=== PATIENT | male | born 1980 | race Caucasian/White ===

== ENCOUNTER 2016-11-21 05:39 | Emergency (ER) | payer MEDICAID ==
--- NOTE | 2016-11-21 05:57 | EDM.PDOC ---
ED HPI GENERAL MEDICAL PROBLEM - General Chief Complaint: General Stated Complaint: WANTS TO BE SEEN Time Seen by Provider: 11/21/16 05:55 - History of Present Illness INITIAL COMMENTS - FREE TEXT/NARRATIVE: 35-year-old male presents to the emergency room because he needs to be seen. Patient has to questions on his mind the first one is he thinks he needs a tetanus shot. 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 According to our records his last tetanus shot was April 2014. His second concern is that he wants to shower last maybe go every couple weeks. I advised him that he probably needs to shower more often. Patient is somewhat intoxicated at this time. He has no specific complaints he does not hurt anywhere and after answering his questions he would like to go home. - Related Data Allergies Allergy/AdvReac Type Severity Reaction Status Date / Time gemfibrozil Allergy Hyperactivi Verified 11/21/16 05:57 ty simvastatin Allergy Hyperactivi Verified 11/21/16 05:57 ty Home Meds: Home Meds Omeprazole 20 mg PO DAILY 11/03/16 [History] Past Medical History - Past Health History Medical/Surgical History: Denies Medical/Surgical History Other HEENT History: allergy to dust Cardiovascular History: Reports: High cholesterol Gastrointestinal History: Reports: Gastritis, GERD Psychiatric History: Reports: Other (see below) Other Psychiatric History: hallucinating, talking to people who are not in room with him. - Past Surgical History HEENT Surgical History: Reports: Other (see below) Other HEENT Surgeries/Procedures: facial reconstruction Cardiovascular Surgical History: Reports: None GI Surgical History: Reports: None Musculoskeletal Surgical History: Reports: Other (see below) Other Musculoskeletal Surgeries/Procedures:: finger surgery Dermatological Surgical History: Reports: Plastic surgical reconstruction/repair Social & Family History - Family History Family Medical History: Unobtainable - Tobacco Use Smoking Status *Q: Current Every Day Smoker Years of Tobacco use: 15 Packs/Tins Daily: 0.3 Used Tobacco, but Quit: No Second Hand Smoke Exposure: No - Caffeine Use Caffeine Use: Reports: None - Alcohol Use Days Per Week of Alcohol Use: 7 Number of Drinks Per Day: 30 Total Drinks Per Week: 210 - Recreational Drug Use Recreational Drug Use: No Recreational Drug Type: Reports: Methamphetamine Other Recreational Drug Type: states hx of marijuana, but not the past year Recreational Drug Use Frequency: Patient Refuses To Answer - Living Situation & Occupation Living situation: Reports: single Occupation: employed ED ROS GENERAL - Review of Systems Review Of Systems: See Below Constitutional: Reports: no symptoms HEENT: Reports: No symptoms Respiratory: Reports: no symptoms Cardiovascular: Reports: No symptoms GI/Abdominal: Reports: No symptoms ED EXAM, GENERAL - Physical Exam Exam: See Below Exam Limited By: Intoxication General Appearance: alert, no apparent distress Respiratory/Chest: no respiratory distress, lungs clear, normal breath sounds Cardiovascular: regular rate, rhythm, no edema, no murmur Course - Vital Signs Last Recorded V/S: Last Vital Signs Temp 36.9 C 11/21/16 05:55 Pulse 95 11/21/16 05:55 Resp 16 11/21/16 05:55 BP 148/98 H 11/21/16 05:55 Pulse Ox 95 11/21/16 05:55 Departure - Departure Time of Disposition: 06:03 Disposition: Home, Self-Care 01 Clinical Impression: Encounter for medical assessment Referrals: PCP,None [Primary Care Provider] - Forms: ED Department Discharge Additional Instructions: Return to the emergency room with any questions or problems
== END 2016-11-21 06:09 | disposition home or self-care (01) ==
LOC: JD.ED 05:39
CPT/HCPCS: 99281

== ENCOUNTER 2016-12-03 09:54 | Emergency (ER) | payer MEDICAID ==
[2016-12-03 10:11] VITALS: BP 166/99
[2016-12-03] MEDS ORDERED: Lidocaine 1% 50 ML MDV INJECT ONE (10:25)
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
== END 2016-12-03 10:45 | disposition home or self-care (01) ==
LOC: JD.ED 09:54
DX: S01.81XA Laceration without foreign body of other part of head, initial encounter (principal); E78.00 Pure hypercholesterolemia, unspecified; I10 Essential (primary) hypertension; F17.210 Nicotine dependence, cigarettes, uncomplicated; Z88.6 Allergy status to analgesic agent; Z88.8 Allergy status to other drugs, medicaments and biological substances; Z79.899 Other long term (current) drug therapy; Z98.890 Other specified postprocedural states
CPT/HCPCS: 12011; 99282-25; 99284-25

== ENCOUNTER 2016-12-24 10:59 | Emergency (ER) | payer MEDICAID, OTHER ==
[2016-12-24 11:22] VITALS: BP 168/104
--- NOTE | 2016-12-24 11:28 | EDM.PDOC ---
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 He reports drinking alcohol at the time. He is not diabetic. Denies bleeding disorder and is not on anti-coagulants. - Related Data Allergies Allergy/AdvReac Type Severity Reaction Status Date / Time gemfibrozil Allergy Hyperactivi Verified 12/24/16 11:22 ty simvastatin Allergy Hyperactivi Verified 12/24/16 11:22 ty Home Meds: Ambulatory Orders Medication Instructions Recorded Confirmed Omeprazole 20 mg PO DAILY 11/03/16 12/24/16 Cephalexin [Keflex] 500 mg PO BID #14 cap 12/24/16 Past Medical History - Past Health History Medical/Surgical History: Denies Medical/Surgical History Other HEENT History: allergy to dust Cardiovascular History: Reports: High cholesterol Gastrointestinal History: Reports: Gastritis, GERD Psychiatric History: Reports: Other (see below) Other Psychiatric History: hallucinating, talking to people who are not in room with him. - Past Surgical History HEENT Surgical History: Reports: Other (see below) Other HEENT Surgeries/Procedures: facial reconstruction Cardiovascular Surgical History: Reports: None GI Surgical History: Reports: None Musculoskeletal Surgical History: Reports: Other (see below) Other Musculoskeletal Surgeries/Procedures:: finger surgery Dermatological Surgical History: Reports: Plastic surgical reconstruction/repair Social & Family History - Family History Family Medical History: Unobtainable - Tobacco Use Smoking Status *Q: Current Every Day Smoker Years of Tobacco use: 15 Packs/Tins Daily: 0.6 Used Tobacco, but Quit: No Second Hand Smoke Exposure: No - Caffeine Use Caffeine Use: Reports: None - Alcohol Use Days Per Week of Alcohol Use: 7 Number of Drinks Per Day: 30 Total Drinks Per Week: 210 Date of Last Drink: 12/24/16 - Recreational Drug Use Recreational Drug Use: Yes Drug Use in Last 12 Months: Yes Recreational Drug Type: Reports: Methamphetamine Other Recreational Drug Type: states hx of marijuana, but not the past year Recreational Drug Use Frequency: Rarely - Living Situation & Occupation Living situation: Reports: single Occupation: employed ED ROS GENERAL - Review of Systems Review Of Systems: See Below Constitutional: Reports: no symptoms Respiratory: Reports: No Symptoms Cardiovascular: Reports: No symptoms Skin: Reports: other (laceration to left index finger) ED EXAM, SKIN/RASH Exam: See Below Exam Limited By: No limitations General Appearance: alert, WD/WN, no apparent distress Respiratory/Chest: no respiratory distress, lungs clear Cardiovascular: regular rate, rhythm, no murmur Peripheral Pulses: 2+: radial (L) Extremities: normal capillary refill, other (Laceration to left index finger, this is very jagged/irregular. 4.5cm total length. ) Neurological: alert, oriented, no motor/sensory deficits Skin: Warm, Dry ED SKIN PROCEDURES - Laceration/Wound Repair Left Finger Lac/wound length in cm: 4.5 Appearance: muscle Distal NVT: neuro & vascular intact, no tendon injury Anesthetic type: local Local anesthesia - Lidocaine (Xylocaine): 1% plain Local anesthetic volume: other (7cc) Skin prep: chlorhexidine (hibiciens), saline Saline irrigation (cc's): 100 Exploration/Debridement/Repair: wound explored, in a bloodless field, no foreign material found Closed with: sutures Suture size: 4-0 # of sutures: 11 Suture type: nylon Course - Vital Signs Last Recorded V/S: Last Vital Signs Temp 98.3 F 12/24/16 11:15 Pulse 111 H 12/24/16 11:15 Resp 16 12/24/16 11:15 BP 168/104 H 12/24/16 11:15 Pulse Ox 97 12/24/16 11:15 - Orders/Labs/Meds Meds: Medications Discontinued Medications Generic Name Dose Route Start Last Admin Trade Name Gino PRN Reason Stop Dose Admin Lidocaine HCl 20 ml 12/24/16 11:35 12/24/16 12:47 Xylocaine 1% INJECT 12/24/16 11:36 Not Given ONETIME ONE Lidocaine HCl Confirm 12/24/16 11:39 12/24/16 11:45 Xylocaine 1% Administered 12/24/16 11:40 50 ml Dose Administration 50 ml .ROUTE .STK-MED ONE Lidocaine HCl 50 ml 12/24/16 11:40 12/24/16 12:47 Xylocaine 1% INJECT 12/24/16 11:41 Not Given ONETIME ONE - Re-Assessments/Exams Free Text/Narrative Re-Assessment/Exam: Jagged laceration to left index finger repaired with 11 simple interrupted sutures. He had full ROM of left index finger, NV intact before and after repair. Patient tolerated procedure well, but was quite fidgety during procedure. Wound care instructions discussed as well as s/sx of infection and patient verbalized understanding. Tdap 04/29/2014. Laceration occurred in contaminated environment, will treat with Keflex for a few days as well. He is to follow-up in clinic in 7-10 days for suture removal. 12/24/16 17:04 Departure - Departure Time of Disposition: 12:43 Disposition: Home, Self-Care 01 Clinical Impression: Laceration of finger of left hand Qualifiers: Encounter type: initial encounter Qualified Code(s): S61.219A - Laceration without foreign body of unspecified finger without damage to nail, initial encounter Prescriptions: Cephalexin [Keflex] 500 mg PO BID #14 cap Instructions: Laceration Care, Adult Referrals: Kevin Cody MD [Primary Care Provider] - Forms: ED Department Discharge Additional Instructions: Keep wound clean and dry, cover when working outdoors. You may shower normally starting tomorrow, not tub or pools until completely healed. Monitor for increase redness, warmth or swelling. Follow-up in clinic in 7-10 days for suture removal.
[2016-12-24] MEDS ORDERED: Lidocaine 1% 20 ML MDV INJECT ONE ×2 (11:35→11:40)
[2016-12-24] MEDS ORDERED: Lidocaine 1% 50 ML MDV ONE (11:39)
== END 2016-12-24 12:55 | disposition home or self-care (01) ==
LOC: JD.ED 10:59
DX: S61.219A Laceration without foreign body of unspecified finger without damage to nail, initial encounter (principal); E78.00 Pure hypercholesterolemia, unspecified; K21.9 Gastro-esophageal reflux disease without esophagitis; F17.210 Nicotine dependence, cigarettes, uncomplicated; Z88.8 Allergy status to other drugs, medicaments and biological substances; Z79.899 Other long term (current) drug therapy; W01.0XXA Fall on same level from slipping, tripping and stumbling without subsequent striking against object, initial encounter
CPT/HCPCS: 12002; 99283; 99283-25

== ENCOUNTER 2017-01-05 07:24 | Emergency (ER) | payer MEDICAID ==
[2017-01-05 07:44] VITALS: BP 136/98
--- NOTE | 2017-01-05 08:13 | EDM.PDOC ---
ED HPI Trauma - General Chief Complaint: Lower Extremity Injury/Pain Stated Complaint: LT POINTER FINGER INFECTED Time Seen by Provider: 01/05/17 07:46 Source: Reports: Patient, RN notes reviewed - History of Present Illness INITIAL COMMENTS - FREE TEXT/NARRATIVE: 36-year-old male comes in with infected left finger laceration. He states he cut it on some tin about 13 days ago. He did have stitches. They were removed just a day or 2 ago. the wound has opened up a bit at and there has been some drainage. There is localized swelling. He states he is on an antibiotic but has no idea what that is. [facility] Allergies/ADRs: Allergies gemfibrozil Allergy (Verified 01/05/17 07:44) Hyperactivity simvastatin Allergy (Verified 01/05/17 07:44) Hyperactivity Home Medications: Ambulatory Orders Omeprazole 20 mg PO DAILY 11/03/16 [Confirmed 12/24/16] Cephalexin [Keflex] 500 mg PO BID #14 cap 12/24/16 Cephalexin 500 mg PO Q6HR #30 capsule 01/05/17 Past Medical History - Past Health History Medical/Surgical History: Denies Medical/Surgical History Other HEENT History: allergy to dust Cardiovascular History: Reports: High cholesterol Gastrointestinal History: Reports: Gastritis, GERD Psychiatric History: Reports: Other (see below) Other Psychiatric History: hallucinating, talking to people who are not in room with him. - Past Surgical History HEENT Surgical History: Reports: Other (see below) Other HEENT Surgeries/Procedures: facial reconstruction Cardiovascular Surgical History: Reports: None GI Surgical History: Reports: None Musculoskeletal Surgical History: Reports: Other (see below) Other Musculoskeletal Surgeries/Procedures:: finger surgery Dermatological Surgical History: Reports: Plastic surgical reconstruction/repair Social & Family History - Family History Family Medical History: Unobtainable - Tobacco Use Smoking Status *Q: Current Every Day Smoker Years of Tobacco use: 15 Packs/Tins Daily: 1 Used Tobacco, but Quit: No Second Hand Smoke Exposure: No - Caffeine Use Caffeine Use: Reports: Coffee, Soda - Alcohol Use Days Per Week of Alcohol Use: 7 Number of Drinks Per Day: 15 Total Drinks Per Week: 105 - Recreational Drug Use Recreational Drug Use: Yes Drug Use in Last 12 Months: Yes Recreational Drug Type: Reports: Marijuana/Hashish, Methamphetamine Other Recreational Drug Type: states hx of marijuana, but not the past year Recreational Drug Use Frequency: Rarely - Living Situation & Occupation Living situation: Reports: single Occupation: employed Review of Systems - Review of Systems Review Of Systems: See Below Constitutional: Denies: fever Eyes: Reports: no symptoms Mouth/Throat: Reports: no symptoms Respiratory: Reports: No Symptoms Cardiovascular: Reports: no symptoms GI/Abdominal: Reports: No symptoms Musculoskeletal: Reports: other (Infected left index finger laceration) Neurological: Reports: No Symptoms Trauma Exam - Physical Exam Exam: See Below General Appearance: Reports: alert, no apparent distress Head: Reports: atraumatic Respiratory Exam: Reports: no respiratory distress Extremities: Reports: pain with movement (Mild), tenderness (Mild), other (2 cm flap laceration has opened up mildly. There is slight drainage present, mild localized swelling.). Denies: bony-point tenderness Neurologic: Denies: motor weakness, sensory deficit Course - Vital Signs Last Recorded V/S: Last Vital Signs Temp 98.4 F 01/05/17 07:39 Pulse 99 01/05/17 07:39 Resp 16 01/05/17 07:39 BP 136/98 H 01/05/17 07:39 Pulse Ox 97 01/05/17 07:39 - Re-Assessments/Exams Free Text/Narrative Re-Assessment/Exam: 01/05/17 08:19. we have soaked the finger in a Hibiclens solution. He is currently on an antibiotic but does not know what that is. [facility] They do not open until 9 AM this morning. I am going to let him go at this time. We'll call the medicine shop at 9:00, find out what he is taking and then I will add an additional antibiotic to that. Discharge instructions as documented 01/05/17 09:09. Patient was started on Bactrim antibiotic 2 days ago. I sent electronic prescription to [facility] for cephalexin 500 mg 4 times a day for one week Departure - Departure Time of Disposition: 08:10 Disposition: Home, Self-Care 01 Condition: fair Clinical Impression: Wound infection Prescriptions: Cephalexin 500 mg PO Q6HR #30 capsule Instructions: Wound Infection, [id number] Referrals: PCP,None [Primary Care Provider] - Forms: ED Department Discharge Additional Instructions: soak in warm soapy water 2 to 3 times daily as best you can. We will call [facility] at [facility]:00 when they open, fine out what antibiotic you are taking and than send a prescription for an addition antibiotic. Take the previous prescribed antibiotic until gone and they one prescribed today until gone as well. Follow up clinic with your regular provider in about 1 week if not much better. Keep protected when at work.
== END 2017-01-05 08:26 | disposition home or self-care (01) ==
LOC: JD.ED 07:24
DX: T81.4XXA Infection following a procedure, initial encounter (principal); E78.00 Pure hypercholesterolemia, unspecified; K21.9 Gastro-esophageal reflux disease without esophagitis; F17.210 Nicotine dependence, cigarettes, uncomplicated; Z88.8 Allergy status to other drugs, medicaments and biological substances
CPT/HCPCS: 99283; 99284

== ENCOUNTER 2017-01-13 23:55 | Emergency (ER) | payer MEDICAID ==
[2017-01-14 00:10] VITALS: BP 157/101
--- NOTE | 2017-01-14 00:45 | EDM.PDOC ---
ED HPI Behavioral Health - General Chief Complaint: Drug or Alcohol Abuse Stated Complaint: ALCOHOL/MEDICAL CLEARANCE Time Seen by Provider: 01/14/17 00:22 Source of Information: Reports: Patient, RN notes reviewed - History of Present Illness INITIAL COMMENTS - FREE TEXT/NARRATIVE: 36 year old male brought in for medical clearance prior to going to [facility] for detox. Police officers state they have been called out 3 times already this evening for him. He has known hx of alcohol abuse and dependency. He has some blood on his face but no visible swelling or deformity. He can not tell me what happened. It is suspected he fell injuring his face. - Related Data Allergies Allergy/AdvReac Type Severity Reaction Status Date / Time gemfibrozil Allergy Hyperactivi Verified 01/14/17 00:15 ty simvastatin Allergy Hyperactivi Verified 01/14/17 00:15 ty Home Medications: Home Meds Omeprazole 20 mg PO DAILY 11/03/16 [History] Cephalexin [Keflex] 500 mg PO BID #14 cap 12/24/16 [Rx] Cephalexin 500 mg PO Q6HR #30 capsule 01/05/17 [Rx] Past Medical History - Past Health History Medical/Surgical History: Denies Medical/Surgical History Other HEENT History: allergy to dust Cardiovascular History: Reports: High cholesterol Gastrointestinal History: Reports: Gastritis, GERD Psychiatric History: Reports: Other (see below) Other Psychiatric History: hallucinating, talking to people who are not in room with him. - Past Surgical History HEENT Surgical History: Reports: Other (see below) Other HEENT Surgeries/Procedures: facial reconstruction Cardiovascular Surgical History: Reports: None GI Surgical History: Reports: None Musculoskeletal Surgical History: Reports: Other (see below) Other Musculoskeletal Surgeries/Procedures:: finger surgery Dermatological Surgical History: Reports: Plastic surgical reconstruction/repair Social & Family History - Family History Family Medical History: Unobtainable - Tobacco Use Smoking Status *Q: Never Smoker Years of Tobacco use: 15 Packs/Tins Daily: 1 Used Tobacco, but Quit: No Second Hand Smoke Exposure: No - Caffeine Use Caffeine Use: Reports: None - Alcohol Use Days Per Week of Alcohol Use: 7 Number of Drinks Per Day: 15 Total Drinks Per Week: 105 - Recreational Drug Use Recreational Drug Use: No Drug Use in Last 12 Months: Yes Recreational Drug Type: Reports: Marijuana/Hashish, Methamphetamine Other Recreational Drug Type: states hx of marijuana, but not the past year Recreational Drug Use Frequency: Rarely - Living Situation & Occupation Living situation: Reports: single Occupation: employed ED ROS GENERAL - Review of Systems Review Of Systems: See Below HEENT: Denies: Ear pain, Nosebleed, Nose pain Respiratory: Denies: Shortness of Breath Cardiovascular: Denies: Chest pain GI/Abdominal: Denies: Abdominal pain Musculoskeletal: Denies: neck pain Neurological: Reports: Dizziness ED EXAM, BEHAVIORAL HEALTH - Physical Exam Exam: See Below Exam Limited By: Intoxication General Appearance: alert, other (pt handcuffed to bed rails at time of my exam , kept trying to leave) Eye Exam: bilateral eye: PERRL Nose: normal inspection. No: nasal swelling, nasal drainage Throat/Mouth: Normal inspection, Normal oropharynx Head: No: facial swelling, facial tenderness Neck: supple Respiratory/Chest: no respiratory distress, lungs clear Cardiovascular: tachycardia Extremities: other (no bony tenderness, healing lac L hand) Neurological: alert (very intoxicated, answers simple questions, knows where he is at) COURSE, BEHAVIORAL HEALTH COMP - Course Vital Signs: Last Vital Signs Temp 97.7 F 01/14/17 00:07 Pulse 129 H 01/14/17 00:07 Resp 20 01/14/17 00:07 BP 157/101 H 01/14/17 00:07 Pulse Ox 97 01/14/17 00:07 Re-Assessment/Re-Exam: Vitals are OK, he was able to walk, discharge instr. as documented. Departure - Departure Time of Disposition: 00:43 Disposition: DC/Tfer to Other 70 Condition: fair Clinical Impression: Alcohol intoxication Qualifiers: Complication of substance-induced condition: uncomplicated Qualified Code(s): F10.120 - Alcohol abuse with intoxication, uncomplicated Instructions: Alcohol Intoxication, [id number] Referrals: PCP,None [Primary Care Provider] - Additional Instructions: Patient has severe alcohol intoxication, known history of severe alcohol dependency and abuse. Medical screening exam has been done. No other acute emergency medical condition is identified at this time.
== END 2017-01-14 00:48 | disposition other institution (70) ==
LOC: JD.ED 23:55
DX: F10.120 Alcohol abuse with intoxication, uncomplicated (principal); E78.00 Pure hypercholesterolemia, unspecified; K21.9 Gastro-esophageal reflux disease without esophagitis; Z88.8 Allergy status to other drugs, medicaments and biological substances; Z79.899 Other long term (current) drug therapy
CPT/HCPCS: 99282; 99283

== ENCOUNTER 2017-03-10 19:27 | Emergency (ER) | payer MEDICAID ==
[2017-03-10 20:03] VITALS: BP 158/107
== END 2017-03-10 20:15 ==
LOC: JD.ED 19:27
DX: Z53.21 Procedure and treatment not carried out due to patient leaving prior to being seen by health care provider (principal)
CPT/HCPCS: 99284-25

== ENCOUNTER 2017-03-10 23:12 | Emergency (ER) | payer MEDICAID ==
[2017-03-10 23:36] VITALS: BP 154/98
--- NOTE | 2017-03-11 00:27 | EDM.PDOC ---
ED HPI GENERAL MEDICAL PROBLEM - General Chief Complaint: ENT Problem Stated Complaint: BLOODY NOSE Time Seen by Provider: 03/11/17 00:24 - History of Present Illness INITIAL COMMENTS - FREE TEXT/NARRATIVE: 41-year-old male presents to emergency room with a bloody nose. Patient states he has a bloody nose he does not appear to have any active bleeding he is heavily intoxicated at this point he states he's been drinking heavily today. He requests florentin-steroids for control of his bloody nose. - Related Data Allergies Allergy/AdvReac Type Severity Reaction Status Date / Time gemfibrozil Allergy Hyperactivi Verified 03/10/17 23:36 ty simvastatin Allergy Hyperactivi Verified 03/10/17 23:36 ty Home Meds: Home Meds Omeprazole 20 mg PO DAILY 11/03/16 [History] Past Medical History - Past Health History Medical/Surgical History: Denies Medical/Surgical History HEENT History: Reports: Epistaxis Other HEENT History: allergy to dust Cardiovascular History: Reports: High Cholesterol Respiratory History: Reports: Other (See Below) Other Respiratory History: "punctured lung" Gastrointestinal History: Reports: Gastritis, GERD Genitourinary History: Reports: Other (See Below) Other Genitourinary History: "punctured kidney" Psychiatric History: Reports: Other (See Below) Other Psychiatric History: hallucinating, talking to people who are not in room with him. - Past Surgical History HEENT Surgical History: Reports: Other (See Below) GI Surgical History: Reports: None Musculoskeletal Surgical History: Reports: Other (See Below) Other Musculoskeletal Surgeries/Procedures:: broken ribs, broken pelvis Dermatological Surgical History: Reports: Plastic Surgical Reconstruction/Repair Social & Family History - Family History Family Medical History: Unobtainable - Tobacco Use Smoking Status *Q: Unknown Ever Smoked Years of Tobacco use: 15 Packs/Tins Daily: 1 Used Tobacco, but Quit: No Second Hand Smoke Exposure: No - Caffeine Use Caffeine Use: Reports: Soda - Alcohol Use Days Per Week of Alcohol Use: 7 Number of Drinks Per Day: 15 Total Drinks Per Week: 105 - Recreational Drug Use Recreational Drug Use: No Drug Use in Last 12 Months: Yes Recreational Drug Type: Reports: Marijuana/Hashish, Methamphetamine Other Recreational Drug Type: states hx of marijuana, but not the past year Recreational Drug Use Frequency: Rarely - Living Situation & Occupation Living situation: Reports: Single Occupation: Employed ED ROS GENERAL - Review of Systems Review Of Systems: See Below Constitutional: Reports: No Symptoms Respiratory: Reports: No Symptoms Cardiovascular: Reports: No Symptoms GI/Abdominal: Reports: No Symptoms ED EXAM, GENERAL - Physical Exam Exam: See Below Exam Limited By: Intoxication General Appearance: Alert, No Apparent Distress Ears: Normal External Exam, Normal Canal, Normal TMs Nose: Normal Inspection, Normal Mucosa, No Blood Throat/Mouth: Normal Inspection, Normal Oropharynx, No Airway Compromise Head: Atraumatic, Normocephalic Neck: Normal Inspection, Supple, Non-Tender, Full Range of Motion Respiratory/Chest: No Respiratory Distress, Lungs Clear, Normal Breath Sounds Cardiovascular: Regular Rate, Rhythm, No Edema, No Murmur Course - Vital Signs Last Recorded V/S: Last Vital Signs Temp 37.2 C 03/10/17 23:34 Pulse 109 H 03/10/17 23:34 Resp 16 03/10/17 23:34 BP 154/98 H 03/10/17 23:34 Pulse Ox 95 03/10/17 23:34 Departure - Departure Time of Disposition: 00:26 Disposition: Home, Self-Care 01 Clinical Impression: Hx of epistaxis - Discharge Information Forms: ED Department Discharge Additional Instructions: Return to the emergency room with any questions or problems or worsening symptoms. At this time there is no evidence of the bloody nose. There is no dried blood in urinalysis there is no blood coming down the back your throat. Steroids are not indicated for bloody noses he will not be started on steroids with no active bleeding there is nothing I can do for your bloody nose at this point. Follow-up in the clinic this next week if needed
== END 2017-03-11 00:30 | disposition left against medical advice (07) ==
LOC: JD.ED 23:12
DX: R04.0 Epistaxis (principal); K21.9 Gastro-esophageal reflux disease without esophagitis; E78.00 Pure hypercholesterolemia, unspecified; Z88.8 Allergy status to other drugs, medicaments and biological substances; Z79.899 Other long term (current) drug therapy; Z98.890 Other specified postprocedural states
CPT/HCPCS: 99282; 99283

== ENCOUNTER 2017-05-19 16:18 | Emergency (ER) | payer MEDICAID ==
[2017-05-19 16:35] VITALS: BP 128/94
--- NOTE | 2017-05-19 17:15 | EDM.PDOC ---
ED HPI GENERAL MEDICAL PROBLEM - General Chief Complaint: Lower Extremity Injury/Pain Stated Complaint: SENT BY [facility]INT[facility] Time Seen by Provider: 05/19/17 16:42 Source of Information: Reports: Patient History Limitations: Reports: Intoxication - History of Present Illness INITIAL COMMENTS - FREE TEXT/NARRATIVE: Patient is a 36-year-old male who is intoxicated presents ED complaining of left ankle pain. Patient states he was walking slipped injuring the affected ankle. He has increasing pain with flexion/extension, palpation, and weightbearing. In addition he has abrasion to the right forehead sustained from the fall. States he was not knocked out. Denies any head, neck, back pain. He has no pain to the remainder extremities. No numbness or tingling. Again he is intoxicated. Left Lower Leg Pain Score (Numeric/FACES): 6 - Related Data Allergies Allergy/AdvReac Type Severity Reaction Status Date / Time gemfibrozil Allergy Hyperactivi Verified 05/19/17 16:30 ty simvastatin Allergy Hyperactivi Verified 05/19/17 16:30 ty Home Meds: Home Meds Omeprazole 20 mg PO DAILY 11/03/16 [History] Past Medical History - Past Health History Medical/Surgical History: Denies Medical/Surgical History HEENT History: Reports: Epistaxis Other HEENT History: allergy to dust Cardiovascular History: Reports: High Cholesterol Respiratory History: Reports: Other (See Below) Other Respiratory History: "punctured lung" Gastrointestinal History: Reports: Gastritis, GERD Genitourinary History: Reports: Other (See Below) Other Genitourinary History: "punctured kidney" Psychiatric History: Reports: Schizophrenia Other Psychiatric History: hallucinating, talking to people who are not in room with him. - Past Surgical History GI Surgical History: Reports: None Musculoskeletal Surgical History: Reports: Other (See Below) Other Musculoskeletal Surgeries/Procedures:: broken ribs, broken pelvis Dermatological Surgical History: Reports: Plastic Surgical Reconstruction/Repair Social & Family History - Family History Family Medical History: Unobtainable - Tobacco Use Smoking Status *Q: Current Every Day Smoker Years of Tobacco use: 14 Packs/Tins Daily: 1 Used Tobacco, but Quit: No Second Hand Smoke Exposure: No - Caffeine Use Caffeine Use: Reports: Energy Drinks, Soda - Alcohol Use Days Per Week of Alcohol Use: 7 Number of Drinks Per Day: 30 Total Drinks Per Week: 210 - Recreational Drug Use Recreational Drug Use: No Drug Use in Last 12 Months: Yes Recreational Drug Type: Reports: Marijuana/Hashish, Methamphetamine Other Recreational Drug Type: states hx of marijuana, but not the past year Recreational Drug Use Frequency: Rarely - Living Situation & Occupation Living situation: Reports: Single Occupation: Employed Review of Systems - Review of Systems Review Of Systems: ROS reveals no pertinent complaints other than HPI. ED EXAM, GENERAL - Physical Exam Exam: See Below Exam Limited By: Intoxication General Appearance: Alert, WD/WN, No Apparent Distress Eye Exam: Bilateral Eye: EOMI, Nystagmus (Horizontal present), PERRL Ears: Hearing Grossly Normal Nose: Normal Inspection, Normal Mucosa, No Blood Throat/Mouth: Normal Inspection, Normal Oropharynx, Normal Voice, No Airway Compromise Head: Other (Small superficial abrasion to the right forehead. No bony abnormalities, ecchymosis, swelling present.) Neck: Normal Inspection, Supple, Non-Tender, Full Range of Motion. No: Tender Lateral, Tender Midline Respiratory/Chest: No Respiratory Distress, Lungs Clear, Normal Breath Sounds, No Accessory Muscle Use, Chest Non-Tender Cardiovascular: Normal Peripheral Pulses, Regular Rate, Rhythm Peripheral Pulses: 2+: Radial (L) Extremities: Other (Minimal swelling to the left ankle with no ecchymosis or bony antibiotics. Pain with palpation and flexion/extension of the ankle.) Neurological: Alert, Oriented, CN II-XII Intact, No Motor/Sensory Deficits Psychiatric: Normal Affect, Normal Mood Skin Exam: Warm, Dry, Intact, Normal Color Course - Vital Signs Last Recorded V/S: Last Vital Signs Temp 98.1 F 05/19/17 16:30 Pulse 88 05/19/17 16:30 Resp 16 05/19/17 16:30 BP 128/94 H 05/19/17 16:30 Pulse Ox 100 05/19/17 16:30 - Orders/Labs/Meds Orders: Active Orders 24 hr Category Date Time Status Ankle Min 3V Lt [CR] Stat Exams 05/19/17 17:12 Taken - Re-Assessments/Exams Free Text/Narrative Re-Assessment/Exam: Order x-ray of the left ankle and head CT without contrast. Head CT impression: No acute intracranial abnormalities. X-ray of the left ankle revealed no acute bony abnormalities. Old avulsion fracture to the tibia. Reviewed with Dr. Hinojosa. Shared results with patient. Offered walking boot and crutches. Patient refuses. Will discharge patient home with instructions as documented. Departure - Departure Time of Disposition: 18:15 Disposition: Home, Self-Care 01 Condition: Good Clinical Impression: Alcohol abuse High ankle sprain of left lower extremity Qualifiers: Encounter type: initial encounter Qualified Code(s): S93.432A - Sprain of tibiofibular ligament of left ankle, initial encounter Contusion of ankle, left Qualifiers: Encounter type: initial encounter Qualified Code(s): S90.02XA - Contusion of left ankle, initial encounter Abrasion head Qualifiers: Encounter type: initial encounter Qualified Code(s): S00.91XA - Abrasion of unspecified part of head, initial encounter Alcohol intoxication Qualifiers: Complication of substance-induced condition: uncomplicated Qualified Code(s): F10.120 - Alcohol abuse with intoxication, uncomplicated - Discharge Information Instructions: Ankle Sprain, [id number] Referrals: Kevin Cody MD [Primary Care Provider] - Forms: ED Department Discharge Additional Instructions: You are to be nonweightbearing. Elevate when able to reduce swelling and pain. Take ibuprofen and Tylenol in alternating fashion for discomfort. Place ice to affected area 6 times daily, 20 months in duration, do not place ice directly on the skin. Follow-up with her PCP in the next week for reevaluation if symptoms persist. Return to ED for any new or worsening symptoms. No driving today since you are intoxicated. - My Orders Last 24 Hours: My Active Orders 05/19/17 17:12 Ankle Min 3V Lt [CR] Stat - Assessment/Plan Last 24 Hours: My Active Orders 05/19/17 17:12 Ankle Min 3V Lt [CR] Stat
--- NOTE | 2017-05-19 18:00 | CT ---
Head CT Technique: Multiple axial sections through the brain were obtained. Intravenous contrast was not utilized. Comparison: Previous head CT exam of 10/27/16. Findings: Ventricles along with basal cisterns and sulci over the convexities are stable from prior head CT exam. No abnormal parenchymal densities are appreciated. No evidence of intracranial hemorrhage. No midline shift or mass effect is seen. Bone window settings were reviewed which shows no discrete calvarial abnormality. Visualized sinuses are clear. Impression: 1. No acute intracranial abnormality is identified. No significant change is identified from prior head CT exam. Diagnostic code #1
--- NOTE | 2017-05-21 08:56 | CR ---
Left ankle: Four views of the left ankle were obtained. Minimal fracture is identified off the distal tip of the medial malleolus. Age of this is indeterminate and please correlate with patient's symptoms. Ankle mortise is symmetric. Minimal calcifications which appear old identified off the dorsal and anterior talus which are compatible with old avulsion injury. No additional bony abnormality is appreciated. Impression: 1. Small fracture off the medial malleolus, age indeterminate. Please correlate. 2. Old avulsion injury off the anterior and dorsal talus. Diagnostic code #3
== END 2017-05-19 18:46 | disposition home or self-care (01) ==
LOC: JD.ED 16:18
DX: S93.432A Sprain of tibiofibular ligament of left ankle, initial encounter (principal); S90.02XA Contusion of left ankle, initial encounter; S00.91XA Abrasion of unspecified part of head, initial encounter; F10.120 Alcohol abuse with intoxication, uncomplicated; E78.00 Pure hypercholesterolemia, unspecified; K21.9 Gastro-esophageal reflux disease without esophagitis; Z98.890 Other specified postprocedural states; F17.210 Nicotine dependence, cigarettes, uncomplicated; Z79.899 Other long term (current) drug therapy; Z88.8 Allergy status to other drugs, medicaments and biological substances; W18.40XA Slipping, tripping and stumbling without falling, unspecified, initial encounter
CPT/HCPCS: 70450; 70450-26; 73610-26-LT; 73610-LT; 99284; 99284-25

== ENCOUNTER 2017-05-20 18:54 | Emergency (ER) | payer MEDICAID ==
[2017-05-20 19:03] VITALS: BP 143/89
--- NOTE | 2017-05-20 20:01 | EDM.PDOC ---
ED HPI GENERAL MEDICAL PROBLEM - General Chief Complaint: Lower Extremity Injury/Pain Stated Complaint: INJURED LT LEG Time Seen by Provider: 05/20/17 19:28 Source of Information: Reports: Patient History Limitations: Reports: No Limitations - History of Present Illness INITIAL COMMENTS - FREE TEXT/NARRATIVE: This is a 36-year-old male. He comes tonight because he twisted his left ankle. He thinks it's broken. He additionally indicates that he needs something for pain because he needs to quit drinking alcohol. He apologized to me since he has not taken a shower or bath in 3 weeks. He denies any other acute symptoms at this time he is just here for his left ankle. - Related Data Allergies Allergy/AdvReac Type Severity Reaction Status Date / Time gemfibrozil Allergy Hyperactivi Verified 05/19/17 16:30 ty simvastatin Allergy Hyperactivi Verified 05/19/17 16:30 ty Home Meds: Home Meds Omeprazole 20 mg PO DAILY 11/03/16 [History] Fexofenadine [Kaylie] 60 mg PO DAILY 05/20/17 [History] Past Medical History - Past Health History Medical/Surgical History: Denies Medical/Surgical History HEENT History: Reports: Epistaxis Other HEENT History: allergy to dust Cardiovascular History: Reports: High Cholesterol Respiratory History: Reports: Other (See Below) Other Respiratory History: "punctured lung" Gastrointestinal History: Reports: Gastritis, GERD Genitourinary History: Reports: Other (See Below) Other Genitourinary History: "punctured kidney" Psychiatric History: Reports: Schizophrenia Other Psychiatric History: hallucinating, talking to people who are not in room with him. - Infectious Disease History Infectious Disease History: Reports: None - Past Surgical History GI Surgical History: Reports: None Musculoskeletal Surgical History: Reports: Other (See Below) Other Musculoskeletal Surgeries/Procedures:: broken ribs, broken pelvis Dermatological Surgical History: Reports: Plastic Surgical Reconstruction/Repair Social & Family History - Family History Family Medical History: Noncontributory - Tobacco Use Smoking Status *Q: Current Every Day Smoker Years of Tobacco use: 14 Packs/Tins Daily: 1 Used Tobacco, but Quit: No Second Hand Smoke Exposure: No - Caffeine Use Caffeine Use: Reports: Energy Drinks, Soda - Alcohol Use Days Per Week of Alcohol Use: 7 Number of Drinks Per Day: 50 Total Drinks Per Week: 350 Date of Last Drink: 05/20/17 Time of Last Drink: 17:30 - Recreational Drug Use Recreational Drug Use: No Drug Use in Last 12 Months: Yes Recreational Drug Type: Reports: Methamphetamine Other Recreational Drug Type: states hx of marijuana, but not the past year Recreational Drug Use Frequency: Rarely - Living Situation & Occupation Living situation: Reports: Single Occupation: Employed Review of Systems - Review of Systems Review Of Systems: See Below Constitutional: Denies: Chills, Fever Eyes: Reports: No Symptoms Ears: Reports: No Symptoms Nose: Reports: No Symptoms Mouth/Throat: Reports: No Symptoms Respiratory: Reports: No Symptoms Cardiovascular: Reports: No Symptoms GI/Abdominal: Reports: No Symptoms Genitourinary: Reports: Other (Denies any symptoms) Musculoskeletal: Reports: Other (Aspirin history of present illness, he also states that his knees and his hips are all torn up but he doesn't want me to look at them) Skin: Reports: No Symptoms Neurological: Reports: No Symptoms Psychiatric: Reports: No Symptoms ED EXAM, GENERAL - Physical Exam Exam: See Below Exam Limited By: No Limitations General Appearance: Alert, WD/WN, No Apparent Distress, Other (Patient is somewhat unkempt, he appears to be chemically impaired though when he is asked on he states his he does have alcohol at times and is drinking too much) Eye Exam: Bilateral Eye: Normal Inspection Ears: Normal External Exam Nose: Normal Inspection Throat/Mouth: Normal Lips, Normal Voice, No Airway Compromise Head: Normocephalic Neck: Supple Respiratory/Chest: No Respiratory Distress Back Exam: Full Range of Motion Extremities: Other (Left ankle shows at most some minimal swelling on the lateral malleolus and no significant tenderness on palpation, he complains of a distal fibular tenderness but there is no swelling there, his left foot is nontender on palpation, he would not allow me to examine his knees or his hips. He complains are all torn up) Neurological: Alert, Oriented Psychiatric: Flat Affect Skin Exam: Warm, Dry Course - Vital Signs Last Recorded V/S: Last Vital Signs Temp 98.8 F 05/20/17 19:00 Pulse 114 H 05/20/17 19:00 Resp 18 05/20/17 19:00 BP 143/89 H 05/20/17 19:00 Pulse Ox 97 05/20/17 19:00 - Orders/Labs/Meds Orders: Active Orders 24 hr Category Date Time Status Ankle Min 3V Lt [CR] Stat Exams 05/20/17 19:45 Taken - Radiology Interpretation Free Text/Narrative:: The x-ray of the left ankle suggest he might have just a very small avulsion fracture on the medial side of the ankle. When I go talk to the patient however he does not point to that area as the area of pain. So this could be an old avulsion fracture rather than a new one. - Re-Assessments/Exams Free Text/Narrative Re-Assessment/Exam: 05/20/17 20:31 I spoke to the patient regarding the x-rays results and he consistently does not point to the area of the avulsion fracture as the area of pain. However I stated and dispensed a 4 inch Jonel wrap to his left ankle for comfort. The patient of course asked again for narcotics and I explained to him that a sprain does not require narcotics and that he needs to ice it down and take over -the-counter Aleve or ibuprofen for the soreness. The patient made the comment that he would just have to keep drinking then and I told him that that would be his choice. Departure - Departure Time of Disposition: 20:32 Disposition: Home, Self-Care 01 Condition: Good Clinical Impression: Left ankle sprain Qualifiers: Encounter type: initial encounter Involved ligament of ankle: other ligament Qualified Code(s): S93.492A - Sprain of other ligament of left ankle, initial encounter Avulsion fracture of left ankle Qualifiers: Encounter type: initial encounter Fracture type: closed Qualified Code(s): S82.892A - Other fracture of left lower leg, initial encounter for closed fracture - Discharge Information Referrals: Kevin Cody MD [Primary Care Provider] - Forms: ED Department Discharge Additional Instructions: Wear the Jonel wrap when you're up to help support the left ankle, follow-up with her family doctor this week for recheck, when you get home ice it 15 minutes out of every hour to help with the pain, get some Aleve or ibuprofen and take it for the soreness and the pain, recheck the ER if needed - My Orders Last 24 Hours: My Active Orders 05/20/17 19:45 Ankle Min 3V Lt [CR] Stat - Assessment/Plan Last 24 Hours: My Active Orders 05/20/17 19:45 Ankle Min 3V Lt [CR] Stat
--- NOTE | 2017-05-21 18:24 | CR ---
Left ankle: Four views of the left ankle were obtained. Comparison: No previous ankle study. Soft tissue swelling is identified. Small fracture is identified off the tip of the medial malleolus. No additional fracture or other abnormality is appreciated. Impression: 1. Small avulsion fracture off the tip of the medial malleolus. 2. Soft tissue swelling. Diagnostic code #3
== END 2017-05-20 20:40 | disposition home or self-care (01) ==
LOC: JD.ED 18:54
DX: S82.892A Other fracture of left lower leg, initial encounter for closed fracture (principal); S93.492A Sprain of other ligament of left ankle, initial encounter; E78.00 Pure hypercholesterolemia, unspecified; K21.9 Gastro-esophageal reflux disease without esophagitis; F20.9 Schizophrenia, unspecified; Z98.890 Other specified postprocedural states; F17.210 Nicotine dependence, cigarettes, uncomplicated; Z88.8 Allergy status to other drugs, medicaments and biological substances; Z79.899 Other long term (current) drug therapy; X50.1XXA Overexertion from prolonged static or awkward postures, initial encounter
CPT/HCPCS: 73610-26-LT; 73610-LT; 99283

== ENCOUNTER 2017-05-29 18:28 | Emergency (ER) | payer MEDICAID ==
[2017-05-29 18:36] VITALS: BP 158/105
[2017-05-29] MEDS ORDERED: Polymyxin B/Trimethoprim 10 ML Bottle EYEBOTH ONE (18:41)
--- NOTE | 2017-05-29 18:47 | EDM.PDOC ---
ED HPI GENERAL MEDICAL PROBLEM - General Chief Complaint: Eye Problems Stated Complaint: THINKS HE HAS PINK EYE Time Seen by Provider: 05/29/17 18:35 Source of Information: Reports: Patient History Limitations: Reports: Intoxication - History of Present Illness INITIAL COMMENTS - FREE TEXT/NARRATIVE: Patient states he developed redness to the right eye with some mucopurulent drainage. Has a irritation feel to the right eye with no changes in vision. He' s had similar symptoms in the past related to pinkeye. Requesting antibiotic eyedrops. Denies any additional complaints. Patient admits to drinking alcohol today. Patient is an alcoholic. He is routinely intoxicated with admission to the ED. - Related Data Allergies Allergy/AdvReac Type Severity Reaction Status Date / Time gemfibrozil Allergy Hyperactivi Verified 05/19/17 16:30 ty simvastatin Allergy Hyperactivi Verified 05/19/17 16:30 ty Home Meds: Home Meds Omeprazole 20 mg PO DAILY 11/03/16 [History] Fexofenadine [Kaylie] 60 mg PO DAILY 05/20/17 [History] Past Medical History - Past Health History Medical/Surgical History: Denies Medical/Surgical History HEENT History: Reports: Epistaxis Other HEENT History: allergy to dust Cardiovascular History: Reports: High Cholesterol Respiratory History: Reports: Other (See Below) Other Respiratory History: "punctured lung" Gastrointestinal History: Reports: Gastritis, GERD Genitourinary History: Reports: Other (See Below) Other Genitourinary History: "punctured kidney" Psychiatric History: Reports: Schizophrenia Other Psychiatric History: hallucinating, talking to people who are not in room with him. - Infectious Disease History Infectious Disease History: Reports: None - Past Surgical History GI Surgical History: Reports: None Musculoskeletal Surgical History: Reports: Other (See Below) Other Musculoskeletal Surgeries/Procedures:: broken ribs, broken pelvis Dermatological Surgical History: Reports: Plastic Surgical Reconstruction/Repair Social & Family History - Family History Family Medical History: Noncontributory - Tobacco Use Smoking Status *Q: Current Every Day Smoker Years of Tobacco use: 14 Packs/Tins Daily: 1 Used Tobacco, but Quit: No Second Hand Smoke Exposure: No - Caffeine Use Caffeine Use: Reports: Energy Drinks, Soda - Alcohol Use Days Per Week of Alcohol Use: 7 Number of Drinks Per Day: 50 Total Drinks Per Week: 350 - Recreational Drug Use Recreational Drug Use: No Drug Use in Last 12 Months: Yes Recreational Drug Type: Reports: Methamphetamine Other Recreational Drug Type: states hx of marijuana, but not the past year Recreational Drug Use Frequency: Rarely - Living Situation & Occupation Living situation: Reports: Single Occupation: Employed ED ROS GENERAL - Review of Systems Review Of Systems: See Below HEENT: Reports: Eye Discharge, Eye Pain. Denies: Ear Pain, Rhinitis, Sinus Problem, Throat Pain, Throat Swelling Musculoskeletal: Denies: Neck Pain Skin: Denies: Rash ED EXAM GENERAL W FULL EYE - Physical Exam Exam: See Below Exam Limited By: Intoxication General Appearance: Alert, WD/WN, No Apparent Distress Eye Exam: Right Eye: Conjunctival Injection, Other (thick yellow discharge to right medial canthous), Left Eye: Normal Inspection, Bilateral Eye: PERRL Eyelids: Bilateral: Normal Appearance Extraocular Movements: Bilateral: Intact Pupillary Size: Bilateral: 4 mm Pupillary Reaction: Bilateral: Brisk Ears: Normal External Exam, Hearing Grossly Normal Nose: Normal Inspection, Normal Mucosa, No Blood Throat/Mouth: Normal Inspection, Normal Oropharynx, Normal Voice, No Airway Compromise Neck: Normal Inspection, Supple Respiratory/Chest: No Respiratory Distress, No Accessory Muscle Use Cardiovascular: Normal Peripheral Pulses, Regular Rate, Rhythm Neurological: Alert, Oriented, CN II-XII Intact, Normal Cognition, No Motor/ Sensory Deficits Psychiatric: Normal Affect, Normal Mood Course - Vital Signs Last Recorded V/S: Last Vital Signs Temp 97.8 F 05/29/17 18:34 Pulse 103 H 05/29/17 18:34 Resp 16 05/29/17 18:34 BP 158/105 H 05/29/17 18:34 Pulse Ox 95 05/29/17 18:34 - Orders/Labs/Meds Meds: Medications Discontinued Medications Generic Name Dose Route Start Last Admin Trade Name Gino PRN Reason Stop Dose Admin Ciprofloxacin 1 ml 05/29/17 18:55 05/29/17 19:05 Ciloxan 0.3% Ophth Soln EYEBOTH 05/29/17 18:56 2 drop ONETIME ONE Administration Polymyxin/Trimethoprim Sulfate 1 ml 05/29/17 18:41 05/29/17 19:10 Polytrim Ophth Soln EYEBOTH 05/29/17 18:42 Not Given ONETIME ONE - Re-Assessments/Exams Free Text/Narrative Re-Assessment/Exam: Ordered polymyxin B/Trimethoprim ophthalmic: 1 drop to each eye. Send bottle with patient. Discharged home with instructions for acute conjunctivitis. We do not have the above antibiotic gtts. Ordered ciprofloxacin 0.3 ophthalmic solution, 2 drops to each eye. Patient will be discharged home with bottle with specific instructions as documented. Departure - Departure Time of Disposition: 18:45 Disposition: Home, Self-Care 01 Condition: Good Clinical Impression: Conjunctivitis Qualifiers: Conjunctivitis type: acute Acute conjunctivitis type: bacterial Laterality: right Qualified Code(s): H10.31 - Unspecified acute conjunctivitis, right eye - Discharge Information Instructions: Bacterial Conjunctivitis, [id number] Referrals: PCP,None [Primary Care Provider] - Forms: ED Department Discharge Additional Instructions: Apply 2 drops in each eye q2hrs while awake x 2 days, then q 4 hr x 5 days. Upon awaking if you have thick mucous discharge stuck to your eyelashes utilize a warm compress to affected area and wipe off. Wash your hands if you come in contact of mucus from the eye. Refrain from itching your eyes. Follow-up with PCP in the next week if symptoms aren't improving. Return to ED for any new or worsening symptoms.
[2017-05-29] MEDS ORDERED: Ciprofloxacin 0.3% Ophth Soln 2.5 ML Bottle EYEBOTH ONE (18:55)
== END 2017-05-29 19:05 | disposition home or self-care (01) ==
LOC: JD.ED 18:28
DX: H10.31 Unspecified acute conjunctivitis, right eye (principal); E78.00 Pure hypercholesterolemia, unspecified; K21.9 Gastro-esophageal reflux disease without esophagitis; F17.210 Nicotine dependence, cigarettes, uncomplicated; Z88.8 Allergy status to other drugs, medicaments and biological substances; Z79.899 Other long term (current) drug therapy
CPT/HCPCS: 99283; A9270; 99282

== ENCOUNTER 2017-11-01 05:34 | Emergency (ER) | payer MEDICAID ==
[2017-11-01 05:50] VITALS: BP 161/101
--- NOTE | 2017-11-01 06:09 | EDM.PDOC ---
ED HPI GENERAL MEDICAL PROBLEM - General Chief Complaint: General Stated Complaint: COLD PAIN IN BODY Time Seen by Provider: 11/01/17 05:45 Source of Information: Reports: Patient, RN Notes Reviewed - History of Present Illness INITIAL COMMENTS - FREE TEXT/NARRATIVE: 36-year-old male presents to the ED this morning intoxicated. Reason for visit this morning not totally clear. He talked to the admitting nurse about his hands being cold, wondering if he could have something for pain. Walked here from his home, distance unknown with absolute temperature below 0 this morning. When I asked what we can do for him he talked about stitches is upper back, wondering if the wound might be infected. He apparently had a cyst removed surgically about 2 weeks ago. He states he has an appointment at the clinic 8: 00 this morning for suture removal. He also did mention to me that his hands feel cold and wondering if he can have something for pain. Bilateral Hand Pain Score (Numeric/FACES): 8 - Related Data Allergies Allergy/AdvReac Type Severity Reaction Status Date / Time gemfibrozil Allergy Hyperactivi Verified 11/01/17 06:00 ty lisinopril Allergy Cannot Verified 11/01/17 06:00 Remember simvastatin Allergy Hyperactivi Verified 11/01/17 06:00 ty Home Meds: Home Meds Omeprazole 20 mg PO DAILY 11/03/16 [History] Past Medical History - Past Health History Medical/Surgical History: Denies Medical/Surgical History HEENT History: Reports: Epistaxis Other HEENT History: allergy to dust Cardiovascular History: Reports: High Cholesterol, Hypertension Respiratory History: Reports: Other (See Below) Other Respiratory History: "punctured lung" Gastrointestinal History: Reports: Gastritis, GERD Genitourinary History: Reports: Other (See Below) Other Genitourinary History: "punctured kidney" Psychiatric History: Reports: Schizophrenia Other Psychiatric History: hx of hallucinating, talking to people who are not in room with him. - Infectious Disease History Infectious Disease History: Reports: None - Past Surgical History GI Surgical History: Reports: None Musculoskeletal Surgical History: Reports: Other (See Below) Other Musculoskeletal Surgeries/Procedures:: broken ribs, broken pelvis Dermatological Surgical History: Reports: Plastic Surgical Reconstruction/Repair Social & Family History - Family History Family Medical History: Noncontributory - Tobacco Use Smoking Status *Q: Current Some Day Smoker Years of Tobacco use: 0 Packs/Tins Daily: 0 Used Tobacco, but Quit: No Second Hand Smoke Exposure: No - Caffeine Use Caffeine Use: Reports: Energy Drinks, Soda - Alcohol Use Days Per Week of Alcohol Use: 7 Number of Drinks Per Day: 30 Total Drinks Per Week: 210 - Recreational Drug Use Recreational Drug Use: No Drug Use in Last 12 Months: Yes Recreational Drug Type: Reports: Methamphetamine Other Recreational Drug Type: states hx of marijuana, but not the past year Recreational Drug Use Frequency: Rarely - Living Situation & Occupation Living situation: Reports: Single Occupation: Employed ED ROS GENERAL - Review of Systems Review Of Systems: See Below Constitutional: Reports: No Symptoms HEENT: Reports: No Symptoms Respiratory: Denies: Shortness of Breath Cardiovascular: Denies: Chest Pain Musculoskeletal: Reports: Other (He states his hands feel cold) ED EXAM, GENERAL - Physical Exam Exam: See Below General Appearance: Alert, Other (Patient is at least moderately intoxicated, he does answer simple questions appropriately, knows where he is at) Eye Exam: Bilateral Eye: PERRL Head: Atraumatic Neck: Supple Respiratory/Chest: No Respiratory Distress Back Exam: Other (Small horizontal incision upper back, as to be healing fine, 3 stitches present.) Extremities: Other (Hands are only slightly cool at this time, no visible evidence for frostbite injury.) Neurological: Alert, No Motor/Sensory Deficits, Other (Ambulatory without difficulty) Course - Vital Signs Last Recorded V/S: Last Vital Signs Temp 96.9 F 11/01/17 05:40 Pulse 104 H 11/01/17 05:40 Resp 18 11/01/17 05:40 BP 161/101 H 11/01/17 05:40 Pulse Ox 98 11/01/17 05:40 - Re-Assessments/Exams Free Text/Narrative Re-Assessment/Exam: 11/01/17 06:27 Stitches have been removed upper back so he does not have to come back to the clinic in 2 hours to have that done. I did offer him Tylenol or ibuprofen for pain and he does decline that. He does not appear to be in obvious pain or discomfort at this time. Departure - Departure Time of Disposition: 06:25 Disposition: Home, Self-Care 01 Condition: Fair Clinical Impression: Alcohol intoxication Qualifiers: Complication of substance-induced condition: uncomplicated Qualified Code(s): F10.920 - Alcohol use, unspecified with intoxication, uncomplicated - Discharge Information Instructions: Suture Removal, Care After Referrals: Kevin Cody MD [Primary Care Provider] - Forms: ED Department Discharge Additional Instructions: avoid further alcohol, your stitches have been removed upper back. Follow up clinic as needed.
== END 2017-11-01 06:12 | disposition home or self-care (01) ==
LOC: JD.ED 05:34
DX: F10.120 Alcohol abuse with intoxication, uncomplicated (principal); E78.00 Pure hypercholesterolemia, unspecified; I10 Essential (primary) hypertension; F17.200 Nicotine dependence, unspecified, uncomplicated; Z88.8 Allergy status to other drugs, medicaments and biological substances; Z79.899 Other long term (current) drug therapy
CPT/HCPCS: 99283

== ENCOUNTER 2017-11-23 19:42 | Emergency (ER) | payer MEDICAID ==
[2017-11-23 19:58] VITALS: BP 129/80
--- NOTE | 2017-11-23 20:17 | EDM.PDOC ---
ED HPI GENERAL MEDICAL PROBLEM - General Chief Complaint: Upper Extremity Injury/Pain Stated Complaint: PAIN IN R ARM Time Seen by Provider: 11/23/17 19:56 Source of Information: Reports: Patient History Limitations: Reports: No Limitations - History of Present Illness INITIAL COMMENTS - FREE TEXT/NARRATIVE: The patient states that he was shoveling a lot of snow this past weekend, and has had pain in his right upper biceps area since then. Specifically, he is concerned about a "bubbling" sensation in the area today - he is indicating the short head of the biceps tendon. The patient is very concerned about his history being relayed to his insurance company and at one point stated that "We'll say that I was shoveling snow", implying that his arm injury did not occur by actually shoveling snow. I attempted to explain to the patient that whatever he discusses with me is confidential, but that if he wants his insurance company to pay for his emergency department bill, that they have the right to see his medical record. - Related Data Allergies Allergy/AdvReac Type Severity Reaction Status Date / Time gemfibrozil Allergy Hyperactivi Verified 11/01/17 06:00 ty lisinopril Allergy Cannot Verified 11/01/17 06:00 Remember simvastatin Allergy Hyperactivi Verified 11/01/17 06:00 ty Home Meds: Home Meds Omeprazole 20 mg PO DAILY 11/03/16 [History] Past Medical History Cardiovascular History: Reports: High Cholesterol, Hypertension Respiratory History: Reports: Pneumothorax Gastrointestinal History: Reports: Gastritis, GERD Psychiatric History: Reports: Schizophrenia - Infectious Disease History Infectious Disease History: Reports: None - Past Surgical History GI Surgical History: Reports: None Musculoskeletal Surgical History: Reports: Other (See Below) Other Musculoskeletal Surgeries/Procedures:: broken ribs, broken pelvis Dermatological Surgical History: Reports: Plastic Surgical Reconstruction/Repair Social & Family History - Family History Family Medical History: Noncontributory - Tobacco Use Smoking Status *Q: Current Every Day Smoker Years of Tobacco use: 20 Packs/Tins Daily: 0.5 - Caffeine Use Caffeine Use: Reports: Coffee - Alcohol Use Alcohol Use History: Yes Days Per Week of Alcohol Use: 7 Number of Drinks Per Day: 30 Total Drinks Per Week: 210 Alcohol Use Frequency: Daily - Recreational Drug Use Recreational Drug Use: Yes Drug Use in Last 12 Months: Yes Recreational Drug Type: Reports: Methamphetamine Other Recreational Drug Type: states hx of marijuana, but not the past year Recreational Drug Use Frequency: Rarely - Living Situation & Occupation Living situation: Reports: Single Occupation: Employed Review of Systems - Review of Systems Review Of Systems: ROS reveals no pertinent complaints other than HPI. ED EXAM, GENERAL - Physical Exam Exam: See Below Exam Limited By: No Limitations General Appearance: Alert, WD/WN, No Apparent Distress Extremities: Other (No visible abnormality to the right biceps, such as swelling , erythema, ecchymosis, or abrasion. No tenderness to the short head of the biceps tendon, and no muscle bunching. Pronation and supination of the right hand are strong.) Course - Vital Signs Last Recorded V/S: Last Vital Signs Temp 36.8 C 11/23/17 19:56 Pulse 104 H 11/23/17 19:56 Resp 20 11/23/17 19:56 BP 129/80 11/23/17 19:56 Pulse Ox 97 11/23/17 19:56 - Re-Assessments/Exams Free Text/Narrative Re-Assessment/Exam: 11/23/17 20:14 On examination, the patient appears to have biceps head tendinitis. I'm recommending rest and ibuprofen. Departure - Departure Time of Disposition: 20:15 Disposition: Home, Self-Care 01 Condition: Good Clinical Impression: Tendinitis of upper biceps tendon of right shoulder - Discharge Information Instructions: Bicipital Tendinitis Referrals: Kevin Cody MD [Primary Care Provider] - Forms: ED Department Discharge Additional Instructions: You were seen in the emergency room for pain and a "bubbling" sensation to your upper right biceps tendon. On examination, you have biceps tendinitis = inflammation of the biceps tendon. We recommend that you rest your upper right arm for the next few days. We recommend that you take [id number] ibuprofen, 2-3 tablets (400-600 mg) every 8 hours, with food, as needed for discomfort. If your symptoms don't improve over the next few days, please follow-up with your PCP, Dr. Cody. If any other problems, please don't hesitate to return to the ER.
== END 2017-11-23 20:29 | disposition home or self-care (01) ==
LOC: JD.ED 19:42
DX: M75.21 Bicipital tendinitis, right shoulder (principal); I10 Essential (primary) hypertension; F17.210 Nicotine dependence, cigarettes, uncomplicated; E78.00 Pure hypercholesterolemia, unspecified; Z79.899 Other long term (current) drug therapy; Z88.8 Allergy status to other drugs, medicaments and biological substances
CPT/HCPCS: 99282; 99283

== ENCOUNTER 2017-12-04 22:36 | Emergency (ER) | payer MEDICAID ==
[2017-12-04 22:49] VITALS: BP 159/109
--- NOTE | 2017-12-04 23:33 | EDM.PDOC ---
ED HPI GENERAL MEDICAL PROBLEM - General Chief Complaint: General Stated Complaint: ALL KINDS OF PROBLEMS KNEE SHOULDER ARM LEG NOSE!! Time Seen by Provider: 12/04/17 23:32 Source of Information: Reports: Patient History Limitations: Reports: No Limitations - History of Present Illness INITIAL COMMENTS - FREE TEXT/NARRATIVE: This 36-year-old male presents to the ED for no specefic reason. He is obviously under the influence of alcohol and suspect other stimulant. His chief complaint to the stock clerk was that he has all kinds of problems shoulders arms legs etc. things breaking down. He admits to recent use of marijuana. However he acts like he is currently jacked up on methamphetamines. He is pacing the floor he is agitated and impatient and wants to see the doctor immediately. His only complaint when I seen him and he was quite cooperative with me was nosebleeds. He had been picking in his nose and has a sore on the medial aspect of his right septum. He asked that both septums be cauterized and this was carried out using silver nitrate stick to one location on each side of his nose. He refused lab work he refused any other treatment he refused urinalysis to confirm clinical suspicion of substance abuse and toxicity. He reported that he has medication at home to help calm him down. It is possible that he is in an early hypomanic early manic phase but I could not establish this while he was in the ED. He was to get a taxi ride home and he states that he is not working tomorrow. Lists his only current medication is Prilosec 20 mg once daily for heartburn. The old notes suggest that he has a diagnosis of schizophrenia. There is no evidence of active hallucinations on today's examination. He may have had psychosis from substance abuse or perhaps significant bipolar affective disorder. Again the notes are not clear on previous psychiatric history. Onset: Unknown/Unsure Duration: Day(s): (Recurrent nosebleeds) Location: Reports: Generalized (Generalized agitation . Pacing the floor quite impatient.) Severity: Moderate Improves with: Reports: None Worsens with: Reports: None Context: Reports: Other (Chronic alcohol abuse. Suspect other chronic substance abuse.). Denies: Activity, Exercise, Lifting, Sick Contact, Trauma Associated Symptoms: Reports: Other (Only concern was recurrent bleeding from his right naris.). 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 (see below) (Only alcohol.) Right Arm Pain Score (Numeric/FACES): 5 - Related Data Allergies Allergy/AdvReac Type Severity Reaction Status Date / Time gemfibrozil Allergy Hyperactivi Verified 12/04/17 22:45 ty lisinopril Allergy Cannot Verified 12/04/17 22:45 Remember simvastatin Allergy Hyperactivi Verified 12/04/17 22:45 ty Home Meds: Home Meds Omeprazole 20 mg PO DAILY 11/03/16 [History] Past Medical History - Past Health History Medical/Surgical History: Denies Medical/Surgical History HEENT History: Reports: Epistaxis Other HEENT History: allergy to dust Cardiovascular History: Reports: High Cholesterol, Hypertension Respiratory History: Reports: Pneumothorax Other Respiratory History: "punctured lung" Gastrointestinal History: Reports: Gastritis, GERD Genitourinary History: Reports: Other (See Below) Other Genitourinary History: "punctured kidney" Psychiatric History: Reports: Schizophrenia Other Psychiatric History: hx of hallucinating, talking to people who are not in room with him. - Infectious Disease History Infectious Disease History: Reports: None - Past Surgical History GI Surgical History: Reports: None Musculoskeletal Surgical History: Reports: Other (See Below) Other Musculoskeletal Surgeries/Procedures:: broken ribs, broken pelvis Dermatological Surgical History: Reports: Plastic Surgical Reconstruction/Repair Social & Family History - Family History Family Medical History: Noncontributory - Tobacco Use Smoking Status *Q: Current Every Day Smoker Years of Tobacco use: 1 Packs/Tins Daily: 0.5 Used Tobacco, but Quit: No Second Hand Smoke Exposure: No - Caffeine Use Caffeine Use: Reports: Coffee - Alcohol Use Days Per Week of Alcohol Use: 7 Number of Drinks Per Day: 30 Total Drinks Per Week: 210 - Recreational Drug Use Recreational Drug Use: Yes Drug Use in Last 12 Months: Yes Recreational Drug Type: Reports: Methamphetamine Other Recreational Drug Type: states hx of marijuana, but not the past year Recreational Drug Use Frequency: Rarely - Living Situation & Occupation Living situation: Reports: Single Occupation: Employed ED ROS GENERAL - Review of Systems Review Of Systems: See Below Constitutional: Denies: Fever, Chills, Malaise, Weakness, Fatigue, Decreased Appetite, Weight Loss HEENT: Reports: Nosebleed (Current bleeding from the right side of his nose 3 days.) Respiratory: Reports: No Symptoms, Cough Cardiovascular: Reports: No Symptoms (Sometimes has a cough.) Endocrine: Reports: No Symptoms GI/Abdominal: Reports: No Symptoms : Reports: No Symptoms Musculoskeletal: Reports: Back Pain Skin: Reports: No Symptoms Neurological: Reports: No Symptoms Psychiatric: Reports: No Symptoms Hematologic/Lymphatic: Reports: No Symptoms ED EXAM, GENERAL - Physical Exam Exam: See Below Exam Limited By: Intoxication (Iliacs intoxicated has a strong smell of alcohol on his breath but he acts like he has other stimulants on board.) General Appearance: Alert, Other (Mildly agitated and impatient. Cooperative on my assessment. Breath smells strongly of alcohol.) Eye Exam: Bilateral Eye: Normal Inspection, Nystagmus (My statements on bilateral lateral gaze.) Nose: Other (He has an area that he's been picking at on the inner aspect of his right anterior nasal septum that was cauterized with silver nitrate. I also cauterized one small area of the) Throat/Mouth: Normal Inspection ( nasal septum on the left side.), Normal Lips, Normal Teeth, Normal Oropharynx Head: Atraumatic, Normocephalic Neck: Normal Inspection, Supple, Non-Tender, Full Range of Motion Respiratory/Chest: No Respiratory Distress, Lungs Clear, Normal Breath Sounds, No Accessory Muscle Use, Chest Non-Tender Cardiovascular: Regular Rate, Rhythm, No Edema, No Murmur, No Rub, Tachycardia ( Resting tachycardia 1 20/m. Again suggestion of stimulants on board) Peripheral Pulses: 3+: Carotid (L), Carotid (R) GI/Abdominal: Normal Bowel Sounds, Soft, Non-Tender, No Organomegaly, No Abnormal Bruit, No Mass, Pelvis Stable Back Exam: Normal Inspection, Full Range of Motion Extremities: Normal Range of Motion, Non-Tender, No Pedal Edema Neurological: Alert, Oriented, CN II-XII Intact, Normal Cognition, Normal Gait, No Motor/Sensory Deficits. No: Inattentive, Confused, Disoriented, Slow to Respond, Unresponsive, Memory Loss Remote Events, Memory Loss Recent Events, Abnormal Gait, Abnormal Reflexes, Sensory/Motor Deficit, Other Psychiatric: Other (Mildly agitated pacing the floor. Again appears to be intoxicated by alcohol. He has symptoms suggesting hypomania or early manic disorder. He did not appear to be acutely psychotic.) Skin Exam: Warm, Dry, Intact, Normal Color, No Rash Course - Vital Signs Last Recorded V/S: Last Vital Signs Temp 35.7 C 12/04/17 22:46 Pulse 120 H 12/04/17 22:46 Resp 18 12/04/17 22:46 BP 159/109 H 12/04/17 22:46 Pulse Ox 97 12/04/17 22:46 - Radiology Interpretation Free Text/Narrative:: 36-year-old male presents the ED for no specific reason that I could identify. His only concern was bleeding from his right anterior nasal intermittent basis last 3 days. Appears that he has injured this area by picking. Cauterized the area of the anterior nasal septum on the right side with silver nitrate stick and also one small spot on the left anterior naris. Satisfy his complaints. His behavior is rather bizarre in terms that he is agitated but he's oriented to person place and time and can carry on a normal conversation. He is not showing any signs of paranoia hallucinations etc. He appears to be under the influence of alcohol perhaps other stimulants. He may be an early phase of a hypomanic manic episode. He is not on any medications that would suggest that he has stopped appropriate treatment. Departure - Departure Time of Disposition: 23:32 Disposition: Home, Self-Care 01 Condition: Fair Clinical Impression: Bleeding nose, Hypomania Alcohol dependency Qualifiers: Substance use status: with intoxication Complication of substance-induced condition: uncomplicated Qualified Code(s): F10.220 - Alcohol dependence with intoxication, uncomplicated - Discharge Information Instructions: Alcohol Use Disorder Referrals: Kevin Cody MD [Primary Care Provider] - Forms: ED Department Discharge Additional Instructions: Evaluation the emergency room tonight in regards to bleeding from the right naris primarily. A spot of inflammation was identified on the septum on each side of the nose. Both size underwent cauterization with silver nitrate to bring the bleeding under control. Treatment is to put Polysporin ointment up into each side of the nose at bedtime with a Q-tip for the next week to prevent further nose bleeding.
== END 2017-12-04 23:37 | disposition home or self-care (01) ==
LOC: JD.ED 22:36
DX: R04.0 Epistaxis (principal); F10.220 Alcohol dependence with intoxication, uncomplicated; F30.8 Other manic episodes; I10 Essential (primary) hypertension; E78.00 Pure hypercholesterolemia, unspecified; K21.9 Gastro-esophageal reflux disease without esophagitis; F17.210 Nicotine dependence, cigarettes, uncomplicated; Z98.890 Other specified postprocedural states; Z79.899 Other long term (current) drug therapy; Z88.8 Allergy status to other drugs, medicaments and biological substances
CPT/HCPCS: 30901; 99283-25

== ENCOUNTER 2020-01-12 07:22 | Emergency (ER) | payer MEDICAID ==
[2020-01-12 07:33] VITALS: BP 179/112; PULSE 116
--- NOTE | 2020-01-12 07:50 | EDM.PDOC ---
ED HPI GENERAL MEDICAL PROBLEM - General Chief Complaint: ENT Problem Stated Complaint: NOSE BLEED Time Seen by Provider: 01/12/20 07:35 - History of Present Illness INITIAL COMMENTS - FREE TEXT/NARRATIVE: 39-year-old male presents the emergency room with a nosebleed. Patient states this has been going on for 4 days. He is not actively bleeding at this time. Patient is a chronic alcoholic and he is acutely intoxicated at this time. Patient has old dried blood down his mustache and the front of his clothing. Patient denies any dizziness no breathing difficulty shortness of breath chest discomfort. He denies black or tarry stools or stomach upset. - Related Data Allergies Allergy/AdvReac Type Severity Reaction Status Date / Time gemfibrozil Allergy Hyperactivi Verified 01/12/20 07:33 ty lisinopril Allergy Cannot Verified 01/12/20 07:33 Remember simvastatin Allergy Hyperactivi Verified 01/12/20 07:33 ty Home Meds: Home Meds Omeprazole 20 mg PO DAILY 11/03/16 [History] Past Medical History - Past Health History Medical/Surgical History: Denies Medical/Surgical History HEENT History: Reports: Epistaxis Other HEENT History: allergy to dust Cardiovascular History: Reports: High Cholesterol, Hypertension Respiratory History: Reports: Pneumothorax Other Respiratory History: "punctured lung" Gastrointestinal History: Reports: Gastritis, GERD Genitourinary History: Reports: Other (See Below) Other Genitourinary History: "punctured liver, kidney, and spleen" Psychiatric History: Reports: Schizophrenia Other Psychiatric History: hx of hallucinating, talking to people who are not in room with him. - Infectious Disease History Infectious Disease History: Reports: None - Past Surgical History HEENT Surgical History: Reports: Oral Surgery GI Surgical History: Reports: None Musculoskeletal Surgical History: Reports: Other (See Below) Other Musculoskeletal Surgeries/Procedures:: broken ribs, broken pelvis Dermatological Surgical History: Reports: Plastic Surgical Reconstruction/Repair Social & Family History - Family History Family Medical History: Noncontributory - Tobacco Use Smoking Status *Q: Current Every Day Smoker Years of Tobacco use: 20 Packs/Tins Daily: 0.5 - Caffeine Use Caffeine Use: Reports: None - Alcohol Use Days Per Week of Alcohol Use: 5 Number of Drinks Per Day: 10 Total Drinks Per Week: 50 - Recreational Drug Use Recreational Drug Use: Yes Recreational Drug Type: Reports: Methamphetamine Recreational Drug Use Frequency: Monthly - Living Situation & Occupation Living situation: Reports: Single Occupation: Employed ED ROS ENT - Review of Systems Review Of Systems: See Below Constitutional: Reports: No Symptoms HEENT: Reports: Nosebleed Respiratory: Reports: No Symptoms Cardiovascular: Reports: No Symptoms GI/Abdominal: Reports: No Symptoms ED EXAM, ENT - Physical Exam Exam: See Below Exam Limited By: Intoxication General Appearance: Alert, No Apparent Distress Eye Exam: Bilateral Eye: Normal Inspection Ears: Normal External Exam, Normal Canal, Hearing Grossly Normal, Normal TMs, Other (Canals have some cerumen in them) Nose: Other (That dried blood around both nares had a blows nose into a moist wet towel a couple of times and cleared out a large amount of clot there is no fresh bleeding. It is unclear to me which side the bleeding was worse on examination of the anterior nose shows no active bleeding sites no potential recent bleeding sites) Mouth/Throat: Normal Inspection, Normal Gums, Normal Lips, Other (Maroon- colored blood clot noted in the posterior pharynx). No: Normal Teeth Head: Atraumatic, Normocephalic Neck: Normal Inspection, Supple, Non-Tender, Full Range of Motion. No: Lymphadenopathy (L), Lymphadenopathy (R) Respiratory/Chest: No Respiratory Distress, Lungs Clear, Normal Breath Sounds Cardiovascular: Regular Rate, Rhythm, No Edema, No Murmur GI/Abdominal: Normal Bowel Sounds, Soft, Non-Tender Course - Vital Signs Last Recorded V/S: Last Vital Signs Temp 36.2 C 01/12/20 07:31 Pulse 116 H 01/12/20 07:31 Resp 19 01/12/20 07:31 BP 179/112 H 01/12/20 07:31 Pulse Ox 96 01/12/20 07:31 - Orders/Labs/Meds Labs: Laboratory Tests 01/12/20 01/12/20 Range/Units 08:15 08:15 WBC 3.77 L (4.23-9.07) K/mm3 RBC 3.75 L (4.63-6.08) M/mm3 Hgb 11.7 L D (13.7-17.5) gm/dl Hct 34.2 L (40.1-51.0) % MCV 91.2 (79.0-92.2) fl MCH 31.2 (25.7-32.2) pg MCHC 34.2 (32.2-35.5) g/dl RDW Std Deviation 44.6 H (35.1-43.9) fL Plt Count 179 D (163-337) K/mm3 MPV 8.9 L (9.4-12.3) fl Neut % (Auto) 47.5 (34.0-67.9) % Lymph % (Auto) 36.6 (21.8-53.1) % Morrill % (Auto) 13.5 H (5.3-12.2) % Eos % (Auto) 1.6 (0.8-7.0) Baso % (Auto) 0.5 (0.1-1.2) % Neut # (Auto) 1.79 (1.78-5.38) K/mm3 Lymph # (Auto) 1.38 (1.32-3.57) K/mm3 Morrill # (Auto) 0.51 (0.30-0.82) K/mm3 Eos # (Auto) 0.06 (0.04-0.54) K/mm3 Baso # (Auto) 0.02 (0.01-0.08) K/mm3 PT 9.8 (9.7-12.0) SECONDS INR 0.93 - Re-Assessments/Exams Free Text/Narrative Re-Assessment/Exam: 01/12/20 09:31 Patient has been observed for some time. He is convinced that needs to be cauterized. With overhead light and nasal speculum I suctioned out all residual clot could not find an anterior bleeder the septum bilaterally looks clear as do all visible mucosa. He has no more blood in the posterior pharynx. There is nothing to cauterize at this point there is no need for packing at this point we will use a water-based lubricant to the base of his nose to help moisten the mucosa and discharge the patient he is advised to stop drinking. His hemoglobin hematocrit is a little low he needs to follow-up with his regular physician later this week to have this rechecked. Blood pressure was initially little elevated this did come down. Departure - Departure Time of Disposition: 09:34 Disposition: Home, Self-Care 01 Clinical Impression: Epistaxis - Discharge Information Referrals: Kevin Cody MD [Primary Care Provider] - Forms: ED Department Discharge Additional Instructions: Return to the emergency room with any questions problems or worsening bleeding. Follow-up with your regular doctor towards the end of this week and have your CBC rechecked as your blood count was a little low. Use K-Y jelly or something similar to the bottom of your nose to help moisten the lining of the inside your nose. Put this at the bottom of your nostrils do not stuff it into your nose. Sepsis Event Note - Evaluation Sepsis Screening Result: No Definite Risk - Focused Exam Vital Signs: Vital Signs Temp Pulse Resp BP Pulse Ox 01/12/20 07:31 36.2 C 116 H 19 179/112 H 96 Date Exam was Performed: 01/12/20 Time Exam was Performed: 09:31
== END 2020-01-12 09:45 | disposition home or self-care (01) ==
LOC: JD.ED 07:22
DX: R04.0 Epistaxis (principal); I10 Essential (primary) hypertension; K21.9 Gastro-esophageal reflux disease without esophagitis; F17.210 Nicotine dependence, cigarettes, uncomplicated; Z79.899 Other long term (current) drug therapy; Z88.8 Allergy status to other drugs, medicaments and biological substances
CPT/HCPCS: 36415; 85025; 85610; 99282; 99283

== ENCOUNTER 2020-01-13 08:46 | Emergency (ER) | payer MEDICAID ==
[2020-01-13 10:21] LABS: ACETAMINOPHEN 0 ug/mL (10-30)
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
[2020-01-13] MEDS ORDERED: Lidocaine 1% with EPINEPHrine 1:100,000 20 ML MDV INJECT ONE (11:20)
[2020-01-13] MEDS ORDERED: Oxymetazoline 0.05% Nasal Spray 30 ML Bottle NAS ONE (11:21)
[2020-01-13 12:32] VITALS: BP 142/87; PULSE 97
== END 2020-01-13 12:09 | disposition home or self-care (01) ==
LOC: JD.ED 08:46
DX: R04.0 Epistaxis (principal); F10.220 Alcohol dependence with intoxication, uncomplicated; Y90.0 Blood alcohol level of less than 20 mg/100 ml; I10 Essential (primary) hypertension; K21.9 Gastro-esophageal reflux disease without esophagitis; F17.210 Nicotine dependence, cigarettes, uncomplicated; Z88.8 Allergy status to other drugs, medicaments and biological substances; Z79.899 Other long term (current) drug therapy
CPT/HCPCS: 30901; 36415; 80053; 80306; 80307; 83735; 85025; 85610; 85730; 96374; 99284; A9270; 99283

== ENCOUNTER 2020-01-16 11:11 | Emergency (ER) | payer MEDICAID ==
[2020-01-16] MEDS ORDERED: Sodium Chloride 0.9% 10 ML Syringe FLUSH PRN (11:33)
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
[2020-01-16] MEDS ORDERED: Sodium Chloride 0.9% 1,000 ML IV SCH (11:45)
[2020-01-16 12:36] LABS: ACETAMINOPHEN 0 ug/mL (10-30)
[2020-01-16 13:12] VITALS: BP 156/95; PULSE 127
[2020-01-16] MEDS ORDERED: LORazepam 1 MG Tab PO ONE (13:49)
[2020-01-16] MEDS ORDERED: chlordiazePOXIDE 25 MG Cap PO ONE (13:57)
== END 2020-01-16 14:50 ==
LOC: JD.ED 11:11
DX: F10.220 Alcohol dependence with intoxication, uncomplicated (principal); I10 Essential (primary) hypertension; K21.9 Gastro-esophageal reflux disease without esophagitis; Z79.899 Other long term (current) drug therapy; F17.210 Nicotine dependence, cigarettes, uncomplicated; Z88.8 Allergy status to other drugs, medicaments and biological substances
CPT/HCPCS: 36415; 80053; 80306; 80307; 84443; 85007; 85027; 93005; 99285; A9270; J7030; 93010

== ENCOUNTER 2020-10-14 07:23 | Emergency (ER) | payer MEDICAID ==
[2020-10-14 07:44] VITALS: BP 121/78; PULSE 116
[2020-10-14] MEDS ORDERED: LORazepam 2 MG/ML SDV IV ONE (07:55)
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
[2020-10-14] MEDS ORDERED: Thiamine 200 MG/2 ML MDV IVPUSH ONE (07:56)
[2020-10-14] MEDS ORDERED: FLU VACC QS2020-21(6MOS UP)/PF 60 MCG/0.5 ML SYRINGE IM ONE (08:00)
[2020-10-14] MEDS ORDERED: Dextrose 5%-Lactated Ringers 1,000 ML IV SCH ×2 (08:00→09:15)
--- NOTE | 2020-10-14 08:52 | CR ---
Chest: Portable view of the chest was obtained. Comparison: No prior chest imaging is available. Heart size and mediastinum are normal. Lungs are clear with no acute parenchymal change. No discrete bony abnormality is appreciated. Impression: 1. Nothing acute is seen on portable chest x-ray. Diagnostic code #1
[2020-10-14 08:57] LABS: ACETAMINOPHEN 0 ug/mL (10-30)
[2020-10-14] MEDS ORDERED: Nicotine 21 MG/24 Hr Patch TRDERM ONE (09:24)
== END 2020-10-14 10:45 | disposition left against medical advice (07) ==
LOC: JD.ED 07:23
DX: M79.661 Pain in right lower leg (principal); M79.662 Pain in left lower leg; F10.20 Alcohol dependence, uncomplicated; D72.819 Decreased white blood cell count, unspecified; R00.0 Tachycardia, unspecified; I10 Essential (primary) hypertension; K21.9 Gastro-esophageal reflux disease without esophagitis; Z23 Encounter for immunization; Z72.0 Tobacco use; Y90.0 Blood alcohol level of less than 20 mg/100 ml; Z79.899 Other long term (current) drug therapy; Z88.8 Allergy status to other drugs, medicaments and biological substances
CPT/HCPCS: 36415; 71045; 80053; 80143; 80179; 80306; 80307; 82009; 82550; 82977; 83690; 83735; 84443; 85025; 85610; 85730; 86140; 90471; 90686; 93005; 96374; 96375; 99285; J2060; J3411; J7121; 93010; 99284; G0008

== ENCOUNTER 2021-12-04 13:18 | Emergency (ER) | payer MEDICAID ==
[2021-12-04] MEDS ORDERED: Ketorolac 30 MG/ML SDV IM ONE (13:31)
[2021-12-04 13:37] VITALS: BP 147/92; PULSE 117
== END 2021-12-04 14:21 | disposition home or self-care (01) ==
LOC: JD.ED 13:18
DX: S62.627A Displaced fracture of middle phalanx of left little finger, initial encounter for closed fracture (principal); K21.9 Gastro-esophageal reflux disease without esophagitis; E78.00 Pure hypercholesterolemia, unspecified; I10 Essential (primary) hypertension; Z88.8 Allergy status to other drugs, medicaments and biological substances; Z79.899 Other long term (current) drug therapy; W00.0XXA Fall on same level due to ice and snow, initial encounter
CPT/HCPCS: 73140; 96372; 99283; J1885

== ENCOUNTER 2022-03-21 00:12 | Emergency (ER) | payer MEDICAID ==
[2022-03-21 00:58] VITALS: BP 159/106; PULSE 108
== END 2022-03-21 00:58 | disposition left against medical advice (07) ==
LOC: JD.ED 00:12
DX: M25.561 Pain in right knee (principal); F17.210 Nicotine dependence, cigarettes, uncomplicated; I10 Essential (primary) hypertension; E78.00 Pure hypercholesterolemia, unspecified; L21.9 Seborrheic dermatitis, unspecified; Z79.899 Other long term (current) drug therapy; Z88.8 Allergy status to other drugs, medicaments and biological substances
CPT/HCPCS: 73564-26-RT; 73564-RT; 99282; 99283

== ENCOUNTER 2022-09-21 10:51 | Emergency (ER) | payer MEDICAID ==
[2022-09-21 12:30] VITALS: BP 150/90; PULSE 95
== END 2022-09-21 12:15 | disposition home or self-care (01) ==
LOC: JD.ED 10:51
DX: F10.129 Alcohol abuse with intoxication, unspecified (principal); E78.00 Pure hypercholesterolemia, unspecified; I10 Essential (primary) hypertension; Z02.89 Encounter for other administrative examinations; Z88.8 Allergy status to other drugs, medicaments and biological substances; Z79.899 Other long term (current) drug therapy
CPT/HCPCS: 99284

== ENCOUNTER 2023-05-02 19:14 | Emergency (ER) | payer MEDICAID ==
[2023-05-02 19:29] VITALS: BP 142/85; PULSE 85
[2023-05-02] MEDS ORDERED: Fluorescein 1 MG Ophth Strip ONE (19:41)
== END 2023-05-02 20:05 | disposition home or self-care (01) ==
LOC: JD.ED 19:14
DX: S05.02XA Injury of conjunctiva and corneal abrasion without foreign body, left eye, initial encounter (principal); K21.9 Gastro-esophageal reflux disease without esophagitis; I10 Essential (primary) hypertension; E78.00 Pure hypercholesterolemia, unspecified; Z88.8 Allergy status to other drugs, medicaments and biological substances; Z79.899 Other long term (current) drug therapy
CPT/HCPCS: 99283

== ENCOUNTER 2023-07-08 06:09 | Emergency (ER) | payer MEDICAID ==
[2023-07-08 06:18] VITALS: BP 162/106; PULSE 116
[2023-07-08] MEDS ORDERED: Famotidine 20 MG Tab PO ONE (06:28)
[2023-07-08] MEDS ORDERED: Pantoprazole 40 MG Tab.CR PO ONE (06:29)
== END 2023-07-08 06:45 ==
LOC: JD.ED 06:09
DX: K29.70 Gastritis, unspecified, without bleeding (principal); F10.920 Alcohol use, unspecified with intoxication, uncomplicated; I10 Essential (primary) hypertension; K21.9 Gastro-esophageal reflux disease without esophagitis; Z88.8 Allergy status to other drugs, medicaments and biological substances; Z87.891 Personal history of nicotine dependence
CPT/HCPCS: 99283; A9270

== ENCOUNTER 2024-11-10 18:49 | Emergency (ER) | payer MEDICAID ==
[2024-11-10] MEDS: Oxymetazoline 0.05% Nasal Spray 30 ML Bottle ONE (19:38)
[2024-11-10] MEDS: Oxymetazoline 0.05% Nasal Spray 30 ML Bottle NAS ONE (19:47)
[2024-11-10 19:49] LABS: EOSINOPHILS ABSOLUTE AUTO 0.1 K/mm3 (0.0-0.4); EOSINOPHILS PERCENT AUTO 1.5 % (0.0-6.0); HEMATOCRIT 38.3 % (42.0-52.0); HEMOGLOBIN 13.4 gm/dl (14.0-18.0); IMMATURE GRAN ABSOLUTE AUTO 0.01 K/mm3 (0.00-0.05); IMMATURE GRAN PERCENT AUTO 0.3 % (0.0-0.4); LYMPHOCYTES ABSOLUTE AUTO 1.2 K/mm3 (1.0-4.8); LYMPHOCYTES PERCENT AUTO 30.3 % (24.0-44.0); MEAN CORPUSCULAR HEMOGLOBIN 30.5 pg (28.0-32.0); MEAN PLATELET VOLUME 9.7 fl (9.4-12.4); MONOCYTES ABSOLUTE AUTO 0.5 K/mm3 (0.0-0.8); MONOCYTES PERCENT AUTO 13.6 % (0.0-8.0); NEUTROPHILS ABSOLUTE AUTO 2.1 K/mm3 (1.8-7.7); NEUTROPHILS PERCENT AUTO 53.3 % (41.0-71.0); PLATELET COUNT,PLT 225 K/mm3 (150-400); WHITE BLOOD CELL COUNT,WBC 3.96 K/mm3 (3.9-11.3)
[2024-11-10 19:50] VITALS: BP 168/101; PULSE 85
[2024-11-10 20:08] LABS: INR 0.93; PROTHROMBIN TIME 9.9 SECONDS (9.7-12.0)
[2024-11-10 20:09] LABS: PTT,PARTIAL THROMBOPLSTIN TIME 27.4 SECONDS (21.7-31.4)
== END 2024-11-10 20:30 | disposition home or self-care (01) ==
LOC: JD.ED 18:49
DX: R04.0 Epistaxis (principal); Z88.8 Allergy status to other drugs, medicaments and biological substances; Z79.899 Other long term (current) drug therapy
CPT/HCPCS: 36415; 85025; 85610; 85730; 99283; A9270